=== PATIENT | male | born 1950 | race Caucasian/White ===

== ENCOUNTER 2022-09-09 09:33 | Outpatient (CLI) | payer BC, SELFPAY | END 2022-09-09 09:34 | disposition home or self-care (01) | PROVIDERS: PCP Family Medicine; Visit Provider Family Medicine | DX: Z00.00 Encounter for general adult medical examination without abnormal findings (principal); I10 Essential (primary) hypertension; E78.5 Hyperlipidemia, unspecified; Z12.5 Encounter for screening for malignant neoplasm of prostate | CPT/HCPCS: 80053; 80061; 82043; 82570; 84153 ==

== ENCOUNTER 2023-01-19 07:40 | Outpatient (CLI) | payer BC, SELFPAY | END 2023-01-19 07:41 | disposition home or self-care (01) | LOC: NFLDREF 01-20 10:19 | PROVIDERS: PCP Family Medicine; Referring Provider Family Medicine; Visit Provider Internal Medicine Nephrology | DX: I10 Essential (primary) hypertension (principal); R80.9 Proteinuria, unspecified; E78.5 Hyperlipidemia, unspecified | CPT/HCPCS: 80069; 82043; 82570 ==

== ENCOUNTER 2023-03-30 19:40 | Emergency (ER) | payer BC, SELFPAY ==
[2023-03-30] VITALS (9 sets, daily range): BP systolic 173–199; BP diastolic 79–111; PULSE 70–90; RESP 20; TEMP 36.4; O2SAT 92–96; BMI 32.8
--- OUTSIDE RECORDS SUMMARY | 2023-03-30 20:11 | XMS_ITS | Continuity of Care Document ---
Author Name Unknown Organization [facility] Address [address] [address] [place] [address] Phone Care Team Providers Care Buffing Turner And Counter Name Role Phone Flaquita Lucero CRNA Unavailable Unavailable Allergies, Adverse Reactions, Alerts Substance Reaction Status Criticality No Known Allergies Active No Inform ation Medications Medication Instructions Dosage Effective Dates (start - stop) Status Comments atorvastatin 40 mg tablet take 1 tablet by oral route every day 40 MG - Active omeprazole 20 mg capsule,delayed release take 1 capsule by oral route every day 30 minutes to 1 hour before a meal 20 MG - Active hydrochlorothiazide 12.5 mg tablet take 1 tablet (12.5MG) by oral route every day 12.5 MG - Active multivitamin tablet take 1 tablet by ORAL route every day with food 1 tablet - Active Aspir-81 81 mg tablet,delayed release take 1 Tablet (81MG) by oral route every day 81 MG - Active simvastatin 80 mg tablet take 1 tablet (80MG) by oral route every day in the evening - No Longer Active Procedures Procedure Date Colonoscopy Flex; W/remov Les- 20 Colonoscopy Flex; W/bx 1/mx Level Iv-surg Path Gross/micro 20 Offic/outpt E&m Estab Low-mod 9 Offic/outpt E&m New Mod Sever 8 Ugi Endo; Dx W/wo Collec Specm 14 Ugi Endo; W/balloon Dilat Esop 14 Ugi Endo; W/bx 1/mx Level Iv-surg Path Gross/micro 14 Offic/outpt E&m New Mod Sever 4 Advance Directives Directive Yes / No Effective Date File Name No Information Encounters Encounter Description Practice Location Reason(s) For Visit Diagnoses Date Provider Providers Copied on Encounter [facility], [address] [address], [place], [id number], [place] tel:[phone] [facility] No Information Sep-0 0 Jazmine Sams. [address] [facility] [address], [place], [id number] , [place]. tel: [phone] Referring Provider: North Melissa MD, [address] [facility] [address], [place], [address] . tel:[phone] [facility], [address] [address], [place], [id number], [place] tel:[phone] [facility] Colorectal polypsDiverticulosi sInternal hemorrhoidsEncounte r for screening for malignant neoplasm of colonBenign neoplasm of sigmoid colonBenign neoplasm of cecumDvrtclos of lg int w/o perforation or abscess w/o bleedingDvrtclos of lg int w/o perforation or abscess w/o bleedingBenign neoplasm of cecumBenign neoplasm of sigmoid colon Sep-0 0 Shin Kat. [address] [facility] [address], [place], [id number] , [place]. tel: [phone] Referring Provider: Referral Self. [facility], [address] [address], [place], [id number], [place] tel:[phone] [facility] No Information Sep-0 0 Shin Kat. [address] [facility] [address], [place], [id number] , [place]. tel: [phone] Offic/outpt E&m Estab Low-mod [facility], [address] [address], [place], [address], [place] tel:[phone] [facility] GI Symptoms or Concerns (chief complaint) Hiatal herniaGastroesophag eal reflux disease, esophagitis presence not specifiedPersonal history of colonic polypsDietary counseling and surveillance 9 Norris Harris. [address] [facility], [address], [place], [place], [id number] , [place]. [phone] Referring Provider: Lynda Rosado MD, [address] [facility] [address], [place] [place], [address] . tel:[phone] Offic/outpt E&m [facility], [address] [address], [place], [id number], [place] tel:[phone] [facility] GI Symptoms or Concerns (chief complaint) Functional dyspepsiaDietary counseling and surveillanceElevate d blood-pressure reading, w/o diagnosis of htn 8 Ashlee Howell. [address] [facility], [facility] [address], [facility] [place], [address] , [place]. [phone] Referring Provider: Referral Self. [facility], [address] [address], [place], [id number], [place] tel:[phone] [facility] Hiatal HerniaGastroduodena l Dis NosDuodenitisGastro duodenal Dis NosHiatal HerniaDuodenitis 4 Cayla Anderson. [address] [facility], [address], [facility] [place], [id number] , [place]. [phone] Referring Provider: Marixa Weir, [address], [place], [address]. tel:[phone] [facility], [address] [address], [place], [id number], [place] tel:[phone] [facility] Gastric/antral Ulcer UnspecDuodenitisHia santos HerniaEsoph Stricture/schatzki RingEsoph Stricture/schatzki RingHiatal HerniaDuodenitisGas tric/antral Ulcer Unspec 4 Cayla Anderson. [address] [facility], [address], [place], [place], [id number] , [place]. [phone] Referring Provider: Marixa Weir, [address], [place], [address]. tel:[phone] Offic/outpt E&m New Mod Sever [facility], [address] [address], [place], [place], [id number], [place] tel:[phone] [facility] Dysphagia, UnspecifiedEsoph Stricture/schatzki RingColon Cancer Screening 4 Janette Aden. [address] [facility], [facility] [address], [place], [place], [id number] , [place]. tel:[phone] Referring Provider: Referral Self. Family History Family Member Type Diagnosis Age At Onset No Information Immunizations Vaccine Date Status Comments Seasonal trivalent influenza vaccine, adjuvanted, preservative free administered Note: [facility] bi-direct ional interface ; Source: Other Registry zoster vaccine recombinant administered N ote: [facility] bi-directional interface ; Source: Other Registry zoster vaccine recombinant administered N ote: [facility] bi-directional interface ; Source: Other Registry influenza, high dose seasona l, preservative-free administered Note: [facility] bi-direct ional interface ; Source: Other Registry Influenza, injectable, MDCK, preservative free Flucelvax Quad Y administered Source: Other Provid er tetanus and diphtheria toxoi ds, adsorbed, preservative free, for adult use (5 Lf of tetanus toxoid and 2 Lf of diphtheria toxoid) administered Note: [facility] bi-direct ional interface ; Source: Other Registry influenza, high dose seasona l, preservative-free administered Note: [facility] bi-direct ional interface ; Source: Other Registry Prevnar 13 administered Note: [facility] bi-d irectional interface ; Source: Other Registry influenza, high dose seasona l, preservative-free administered Note: [facility] bi-direct ional interface ; Source: Other Registry Pneumococcal conjugate PCV 13 administere d Source: Certificate Fluzone Quad 6mo or older administered Note: [facility] bi-direct ional interface ; Source: Other Registry influenza, high dose seasona l, preservative-free administered Note: [facility] bi-direct ional interface ; Source: Other Registry Pneumovax 23 administered Note: [facility] bi-d irectional interface ; Source: Other Registry Pneumo (2 yrs or older)(PPV) administered Source: Other Provider Influenza, seasonal, injectable, preservative free administered Note: [facility] bi-directional interface ; Source: Other Registry Payers Payer name Insurance type Covered alliance party ID Deena cruz(s) [facility] [id number] Social History Type Description Quantity Date Captured Comments Sex Male Smoking Status No Information Chief Complaint And Reason For Visit No Information Reason For Referral Reason For Referral No Information Plan Of Treatment Date Type Action Status Goal Lifestyle education regardin g diet completed Goal Lifestyle education regardin g diet completed Referral Ordered: Colonoscopy Appointment date/timeframe: -today ordered History Of Present Illness Encounter Date Complaint History Of Prese nt Illness GI Symptoms or Concerns Harpal is seen today in followup. This patient is a 68-year-old man with a history of dysphagia. He had been found 5 years ago to have a Schatzki ring and large hiatal hernia. At that time, endoscopy had been performed, dilation was done, and he was placed on a PPI. Since then, he has actually been doing well.He denies symptoms of heartburn or dysphagia. He eats 5 to 6 o'clock at night and typically does not snack. He does not awaken with regurgitation. His weight is stable.I note that his family history shows no esophageal disease. The patient smokes an occasional cigar. His weight is stable.His history is reviewed. He has no allergies.MEDICATIONSAt this point, simvastatin, hydrochlorothiazide, vitamins, baby aspirin, and 20 of omeprazole daily.PRIOR SURGERIESInclude 2 hernias, appendectomy, broken leg, tonsils, and an umbilical hernia. Medically, he has been treated for blood pressure, hyperlipidemia, Schatzki's ring, and diverticulosis.SOCIAL HIS GI Symptoms or Concerns Very ple asant 67 year old man presents for follow up of functional dyspepsia. Patient reports long standing history of upper GI symptoms including heartburn, gas and bloating. He takes Omeprazole 40 mg daily which has led to complete resolution of patient's symptoms. He had an EGD in 07/2013 that was essentially normal. Patient underwent empiric balloon dilation at the time, size: 13 mm, 14 mm, 15 mm, since he was complaining on dysphagia. Followup EGD 09/2013 showed non-obstructing Schatzki's ring at GE junction with medium sized HH. Mid and distal esophageal biopsies were negative. Stomach biopsies showed reactive gastropathy with no evidence of H. Pylori infection. Patient feels fine at baseline. He reports that his symptoms are well controlled with omeprazole. He denies heartburn, dysphagia, nausea, vomiting, abdominal pain, or changes in bowel habits. No blood in the stool. Weight is stable. He's UTD in terms of colon cancer screening. Functional Status Date Functional Assessmen t No Information Instructions Date Instruction Additional Infor mation Diverticulosis/Diverticulitis Re lated to Colorectal polyps Colon Polyps Related to Color ectal polyps Hemorrhoids Related to Color ectal polyps Colon Cancer Prevention Related to Colorectal polyps high fiber diet Related to Color ectal polyps Clinically, the francesca ent is doing well. I have refilled his omeprazole. We talked about the potential benefits and risks of these medications. We also talked about long-term treatments of reflux including medical treatment and surgery.He has a history of polyps in the past. It has been 5 years. I have ordered a colonoscopy at this point and the patient will comply at some point in the future. His is undergoing hip surgery tomorrow.If the patient is otherwise doing well, I will ask that he follow up through his primary provider, Marixa Deleon, or we would be happy to see him as needed. Related to Hiatal hernia Lifestyle education regarding di et Related to Dietary counseling and surveillance Lifestyle education regarding di et Related to Dietary counseling and surveillance Assessments Type Assessment Date No Information Patient Care Teams Name Effective Dates (start - stop) Status Members No Information
[2023-03-30 20:32] LABS: Lactate* 1.3 mmol/L (0.5-1.9)
[2023-03-30 20:34] LABS: Basophils Absolute Auto 0.06 K/uL (0.00-0.30); Basophils Percent Auto 0.8 % (0.0-3.0); Eosinophils Absolute Auto 0.18 K/uL (0.00-0.50); Eosinophils Percent Auto 2.3 % (0.0-7.0); Hematocrit 41.8 % (37.0-53.0); Hemoglobin* 14.1 gm/dL (13.5-17.5); Immature Granulocytes Abs Auto 0.03 K/uL (0.00-0.30); Immature Granulocytes Pct Auto 0.4 %; Lymphocytes Percent Auto 16.2 % (20-44); Mean Corpuscular HGB Conc 34 gm/dL (32-36); Mean Corpuscular Hemoglobin 30 pg (26-34); Mean Corpuscular Volume 90 fL (80-100); Monocytes Percent Auto 7.9 % (0.0-11.0); Neutrophils Percent Auto 72.4 % (42.0-72.0); Platelet Count* 192 K/uL (140-440); Red Blood Count 4.66 m/uL (4.30-5.90); White Blood Count* 7.83 K/uL (4.50-11.00)
--- NOTE | 2023-03-30 20:34 | ED_ITS ---
HPI - General Adult General Chief complaint: Hypertension Stated complaint: High blood pressure - 191 sys. Time Seen by Provider: 03/30/23 19:46 Source: patient Mode of arrival: ambulatory Limitations: no limitations History of Present Illness HPI narrative: 72-year-old male with a history of poorly controlled hypertension presents today with elevated blood pressures and headache. Patient states that for about a week and his blood pressures have been quite elevated in the 190s and 200s systolic. He states that he was on hydrochlorothiazide-losartan combination in about a week ago he was switched to losartan only few days after that his dose was increased to 100 mg. He tells me that he was told he had some abnormal labs and that is why he was taken off the hydrochlorothiazide. He is uncertain exactly the details of that decision. He does state that yesterday he started with a headache and the headache has progressed. He states that he woke up at 3:00 a.m. in the morning with a lot of pressure in his head and that pressure continues throughout the day. He also states that he feels tired and this is unlike him. Patient tells me that he tries to exercise regularly. He does not put any salt on his food at home, but he does eat out very frequently. Related Data Home Medications Medication Instructions Recorded Confirmed B6 1.7 mg-folic 400 mcg-B12 2.4 1 cap PO .QD 03/12/22 03/30/23 [id number] oral capsule (Neuriva Plus Brain Performance) multivitamin with iron (Daily 1 tab PO QDAY 03/12/22 03/25/23 Multiple Vitamins with Iron tablet) Previous Rx's Medication Instructions Recorded atorvastatin 40 mg tablet 40 mg PO QDAY #90 tabs 09/09/22 omeprazole 20 mg capsule,delayed 20 mg PO DAILY #90 caps 09/09/22 release losartan 100 mg tablet 100 mg PO QDAY #30 tabs 03/25/23 nirmatrelvir 300 mg (150 mg See Rx Instructions PO .COMPLEX 03/30/23 x2)-ritonavir 100 mg tablet,dose #30 ea pack (Paxlovid) Allergies Allergy/AdvReac Type Severity Reaction Status Date / Time No Known Allergies Allergy Verified 03/25/23 07:58 Review of Systems Status of ROS: Reports: 10 or more systems reviewed and unremarkable except as noted in History and below [facility] Medical History Bronchitis ?J40 - Bronchitis, not specified as acute or chronic (ICD-10) Gastric ulcer (03/20/13) ?K25.9 - Gastric ulcer, unspecified as acute or chronic, without hemorrhage or perforation (ICD-10) Diverticulosis of intestine ?K57.90 - Diverticulosis of intestine, part unspecified, without perforation or abscess without bleeding (ICD-10) Difficulty breathing ?R06.89 - Other abnormalities of breathing (ICD-10) Neutropenia ?D70.9 - Neutropenia, unspecified (ICD-10) History of herpes zoster ?Z86.19 - Personal history of other infectious and parasitic diseases (ICD- 10) History of fracture of lower extremity ?Z87.81 - Personal history of (healed) traumatic fracture (ICD-10) Surgical History Status post repair of ventral hernia ?Z98.890 - Other specified postprocedural states (ICD-10) ?Z87.19 - Personal history of other diseases of the digestive system (ICD-10) History of umbilical hernia repair ?Z98.890 - Other specified postprocedural states (ICD-10) ?Z87.19 - Personal history of other diseases of the digestive system (ICD-10) History of tonsillectomy ?Z90.89 - Acquired absence of other organs (ICD-10) History of esophagogastroduodenoscopy (EGD) (03/20/13) ?Z98.890 - Other specified postprocedural states (ICD-10) History of appendectomy (03/20/13) ?Z90.49 - Acquired absence of other specified parts of digestive tract (ICD- 10) Family History Mother Breast cancer Father Stroke Social History Narrative: Cigar smoker- 3-4/week Does not use illicit drugs Occasional alcohol consumption Exercises regularly- walking Has 2 children Smoking Status: Current every day smoker What tobacco products do you use: cigars How often do you have a drink containing alcohol: 2-3 times a week How often do you have six or more drinks on one occasion: Never AUDIT-C Alcohol total score: 3 Non-prescribed substance use: denies use Little interest or pleasure in doing things: not at all Feeling down, depressed, or hopeless: not at all Exam Narrative: Exam Narrative: Obese, well-developed patient in no acute distress. Alert and oriented x3. Answers questions appropriately. Mood and affect are appropriate. Thoughts are goal oriented and rational. No tangential or magical thinking noted. Patient speaks in full sentences without needing to catch his breath. Speech is not slurred or pressured. HEENT: Normocephalic atraumatic. Pupils are equally round reactive to light. Extraocular muscles are intact. Conjunctivae are moist without any icterus noted. Moist mucous membranes. P Cardiovascular: Heart is regular rate and rhythm S1 and S2 are present without any murmurs. Lungs: Clear to auscultation bilaterally no wheezes rhonchi or rales are appreciated. Patient takes deep breaths without any discomfort. Abdomen: Soft and nontender nondistended with normal bowel sounds. Protuberant. Extremities: Bilateral lower extremities are without edema. Normal DP and PT pulses. Skin: Well perfused without any obvious rashes. Strength is 5/5 of the upper and lower extremities. Reflexes are 2+ and symmetric at the knees. Cranial nerves 3-12 are grossly normal. There is no nystagmus either horizontally or vertically. Gait is normal. Const: Vital Signs, click to edit/add: Vital Signs - 24 hr 03/30/23 19:49 03/30/23 21:24 03/30/23 21:30 Temperature 97.6 F Pulse Rate 73 75 Pulse Rate [Pulse Oximeter] 90 Respiratory Rate 20 Blood Pressure Blood Pressure [Ri ght Upper Arm] 199/79 H Pulse Oximetry 95 92 94 Oxygen Delivery Me thod Room Air 03/30/23 21:32 Temperature Pulse Rate 72 Pulse Rate [Pulse Oximeter] Respiratory Rate Blood Pressure 173/99 H Blood Pressure [Ri ght Upper Arm] Pulse Oximetry 95 Oxygen Delivery Ks thod Course Course ED Course: Given his symptoms of fatigue and headache we did offer further workup today. EKG, read by me, shows normal sinus rhythm with a pulse of 72. CBC and chemistries were unremarkable. COVID-19 was positive. Given patient's significant concerns about his elevated blood pressure we did go ahead and give him 5 mg of IV labetalol which brought his systolic down to 164. Vital Signs Vital signs: Initial Vital Signs Temperature 97.6 F 03/30/23 19:49 Temperature Source Temporal Artery Scan 03/30/23 19:49 Pulse Rate 90 03/30/23 19:49 Respiratory Rate 20 03/30/23 19:49 Blood Pressure 199/79 H 03/30/23 19:49 Blood Pressure Mean 119 H 03/30/23 19:49 Pulse Oximetry 95 03/30/23 19:49 Oxygen Delivery Method Room Air 03/30/23 19:49 Vital Signs Temperature 97.6 F 03/30/23 19:49 Pulse Rate 90 03/30/23 19:49 Respiratory Rate 20 03/30/23 19:49 Blood Pressure 199/79 H 03/30/23 19:49 Pulse Oximetry 95 03/30/23 19:49 Oxygen Delivery Method Room Air 03/30/23 19:49 Temperature 97.6 F 03/30/23 19:49 Pulse Rate 72 03/30/23 21:32 Respiratory Rate 20 03/30/23 19:49 Blood Pressure 173/99 H 03/30/23 21:32 Pulse Oximetry 95 03/30/23 21:32 Oxygen Delivery Method Room Air 03/30/23 19:49 Medical Decision Making MDM Narrative Medical decision making narrative: 72-year-old male with hypertension poorly controlled. Patient has an appointment scheduled with primary care provider in 2 weeks and he is encouraged to keep that appointment. COVID-19. Will treat with Paxlovid given his age. Lab Data Lab results reviewed: Yes I reviewed the patient's lab results Labs: Lab Results 03/30/23 03/30/23 Range/Units 20:16 20:25 WBC 7.83 (4.50-11.00) K/uL RBC 4.66 (4.30-5.90) m/uL Hgb 14.1 (13.5-17.5) gm/dL Hct 41.8 (37.0-53.0) % MCV 90 (80-100) fL MCH 30 (26-34) pg MCHC 34 (32-36) gm/dL RDW Coeff of Xochitl 12.0 (11.5-15.5) % Plt Count 192 (140-440) K/uL Neut % (Auto) 72.4 H (42.0-72.0) % Lymph % (Auto) 16.2 L (20-44) % Lewis % (Auto) 7.9 (0.0-11.0) % Eos % (Auto) 2.3 (0.0-7.0) % Baso % (Auto) 0.8 (0.0-3.0) % Neut # (Auto) 5.70 (1.7-7.0) K/uL Lymph # (Auto) 1.30 (0.90-2.90) K/uL Lewis # (Auto) 0.60 (0.00-0.90) K/UL Eos # (Auto) 0.18 (0.00-0.50) K/uL Baso # (Auto) 0.06 (0.00-0.30) K/uL Abs Immat Gran (auto) 0.03 (0.00-0.30) K/uL Imm/Tot Granulo (auto) 0.4 % Sodium 138 (135-149) mmol/L Potassium 3.7 (3.6-5.1) mmol/L Chloride 103 (96-114) mmol/L Carbon Dioxide 28 (20-32) mmol/L Anion Gap 7 (7-15) mEq/L BUN 19 (7-30) mg/dL Creatinine 0.9 (0.5-1.5) mg/dL Estimated Creat Clear 64.81 Estimated GFR 90 ml/min Glucose 136 H (60-115) mg/dL Lactate 1.3 (0.5-1.9) mmol/L Calcium 9.3 (8.4-10.6) mg/dL C-Reactive Protein < 0.5 L (0.5-1.0) mg/dL SARS-CoV-2 (PCR) POSITIVE SARS-CoV-2 A (Negative) ECG Data Attestation: I personally reviewed and interpreted this ECG as follows: Discharge Plan Discharge Clinical Impression: COVID-19, Poorly-controlled hypertension Patient Disposition: Home, Self-Care Condition: Stable Additional Instructions: transportation department supervisor medication tomorrow and start then. Quarantine yourself for 10 days or until symptoms have resolved. You should wear a mask around other people for a total of 10 days. Stop taking your atorvastatin while taking Paxlovid. You can restart 2 days after Paxlovid is done. Prescriptions: New Paxlovid 300 mg (150 mg x 2)-100 mg tablets,dose pack See Rx Instructions .ROUTE .COMPLEX Qty: 30 0RF Rx Instructions: take TWO 150 mg tablets of nirmatrelvir with ONE 100 mg tablet of ritonavir twice daily for 5 days No Action multivitamin with iron [Daily Multiple Vitamins/Iron] Tablet 1 tab PO QDAY Neuriva Plus Brain Performance 1.7 mg-400 mcg- 2.4 mcg capsule 1 cap PO .QD atorvastatin 40 mg tablet 40 mg PO QDAY Qty: 90 3RF omeprazole 20 mg capsule,delayed release(DR/EC) 20 mg PO DAILY Qty: 90 3RF losartan 100 mg tablet 100 mg PO QDAY Qty: 30 1RF Follow Up/Referrals: Ame Montesinos DO [Primary Care Provider] - Stand Alone Forms: MyHealth Info Instructions
[2023-03-30 20:38] LABS: Slide Review Reflex No
[2023-03-30 20:51] LABS: Chloride* 103 mmol/L (96-114); Potassium* 3.7 mmol/L (3.6-5.1); Sodium* 138 mmol/L (135-149)
[2023-03-30 20:54] LABS: Creatinine* 0.9 mg/dL (0.5-1.5); Est. Creatinine Clearance* 64.81; Estimated Glomerular Filt Rate 90 ml/min
[2023-03-30 20:55] LABS: Blood Urea Nitrogen* 19 mg/dL (7-30); Calcium* 9.3 mg/dL (8.4-10.6); Carbon Dioxide* 28 mmol/L (20-32); Glucose* 136 mg/dL (60-115)
[2023-03-30 20:58] LABS: Anion Gap 7 mEq/L (7-15); C Reactive Protein* < 0.5 mg/dL (0.5-1.0)
[2023-03-30] MEDS: LABETALOL HCL 5 MG/ML inj IVP (21:07)
[2023-03-30 21:13] LABS: SARS PCR* POSITIVE SARS-CoV-2 (Negative)
[2023-03-30 22:00] LABS: Albumin* 4.1 g/dL (3.3-5.0)
[2023-03-30 22:03] LABS: Alanine Aminotransferase* 25 U/L (4-50); Alkaline Phosphatase* 89 U/L (40-150); Aspartate Amino Transferase* 29 U/L (12-35); Bilirubin Total* 0.6 mg/dL (0.1-1.5); Total Protein* 7.4 g/dL (6.0-8.3)
[2023-03-30 22:20] LABS: NT Pro B Type NatriureticPept* 163 pg/mL; Troponin I* < 0.01 ng/mL (0.01-0.04)
== END 2023-03-30 22:15 | disposition home or self-care (01) ==
PROVIDERS: Emergency Provider Family Medicine; PCP Family Medicine
DX: U07.1 COVID-19 (principal); I10 Essential (primary) hypertension
CPT/HCPCS: 36415; 80048; 80076; 81001; 83605; 83880; 84443; 84484; 85025; 86140; 87086; 87635; 93005; 96374; 99284

== ENCOUNTER 2023-04-12 08:35 | Outpatient (CLI) | payer BC, SELFPAY | END 2023-04-12 08:36 | disposition home or self-care (01) | LOC: NFLDREF 04-14 10:51 | PROVIDERS: PCP Family Medicine; Referring Provider Family Medicine; Visit Provider Internal Medicine Nephrology | DX: I10 Essential (primary) hypertension (principal); R80.9 Proteinuria, unspecified; E78.5 Hyperlipidemia, unspecified | CPT/HCPCS: 80069; 82043; 82570 ==

== ENCOUNTER 2023-04-29 07:55 | Outpatient (CLI) | payer BC, SELFPAY | END 2023-04-29 07:56 | disposition home or self-care (01) | LOC: NFLDREF 05-02 01:19 | PROVIDERS: PCP Family Medicine; Referring Provider Family Medicine; Visit Provider Internal Medicine Nephrology | DX: I10 Essential (primary) hypertension (principal); R80.9 Proteinuria, unspecified | CPT/HCPCS: 80048; 80069; 82043; 82570 ==

== ENCOUNTER 2023-06-21 07:36 | Outpatient (CLI) | payer BC, SELFPAY | END 2023-06-21 07:37 | disposition home or self-care (01) | LOC: NFLDREF 06-22 10:55 | PROVIDERS: PCP Family Medicine; Referring Provider Family Medicine; Visit Provider Internal Medicine Nephrology | DX: I10 Essential (primary) hypertension (principal); E78.5 Hyperlipidemia, unspecified; R80.9 Proteinuria, unspecified; D70.9 Neutropenia, unspecified | CPT/HCPCS: 80069; 82043; 82570 ==

== ENCOUNTER 2023-12-27 08:18 | Outpatient (CLI) | payer BC, SELFPAY ==
--- OUTSIDE RECORDS SUMMARY | 2023-12-29 06:08 | XMS_ITS | Referral Summary ---
Author Organization [facility] Address [address] [place] [address] Care Team Providers Care Housing Liaison Name Role Phone Unavailable Primary Care Provider Unavailabl e Source Comments Patient records contain information from all sites at [facility]. For routine questions regarding patient records, call [phone] during business hours, M-F 8:00 AM - 5:00 PM Central Time. Record requests for emergency care only can be directed to [phone] at any time.[facility] Encounters Date Type Department Care Team Description 12/28/2023 8:00 AM CDT External Outreach Division of Nephrology and Hypertension in [place], [place] [address] [place] [address] Nubia Bowers M.D., Ph.D. Proteinuria (Primary Dx); Hypertension Essential Primary from Last 3 Months Medications Medication Sig Dispensed Refills Start Date End Date Status losartan-hydroCHLORO thiazide (HYZAAR) 100-12.5 mg per tablet Take 1 tablet by mouth daily. 90 tablet 3 04/14/2023 04/13/2024 Active amLODIPine (Norvasc) 5 mg tablet Take 1 tablet (5 mg total) by mouth daily. 90 tablet 3 12/28/2023 12/27/2024 Active Social History Tobacco Use Types Packs/Day Years Used Date Smoking Tobacco: Never Assessed Nutrition Answer Date Recorded Nutrition: EVOO Fat Source Unknown 09/18 Nutrition: Servings of Fruits/Vegetables per Day Not on file 09/18/2022 Dental Answer Date Recorded Dental: Regular Dentist Unknown 09/19/19 Sex and Gender Information Value Date Recorded Sex Assigned at Not on file Gender Identity Not on file Sexual Orientation Not on file Plan of Treatment Not on file
--- OUTSIDE RECORDS SUMMARY | 2023-12-29 06:08 | XMS_ITS ---
Author Organization [facility] Address [address] [place] [address] Care Team Providers Care Outside Physical Damage Appraiser Name Role Phone Unavailable Unavailable Unavailable Surgery Details Not on file Complications Check Surgery Details section. Procedure Estimated Blood Loss Check Surgery Details section. Procedure Findings Check Surgery Details section. Procedure Specimens Taken Check Surgery Details section.
--- OUTSIDE RECORDS SUMMARY | 2023-12-29 06:08 | XMS_ITS | Clinical Summary ---
Author Organization [facility] Address [address] [place] [address] Care Team Providers Care Framework Developer Name Role Phone Unavailable Primary Care Provider Unavailabl e Source Comments Patient records contain information from all sites at [facility]. For routine questions regarding patient records, call [phone] during business hours, M-F 8:00 AM - 5:00 PM Central Time. Record requests for emergency care only can be directed to [phone] at any time.[facility] Medications Medication Sig Dispensed Refills Start Date End Date Status losartan-hydroCHLORO thiazide (HYZAAR) 100-12.5 mg per tablet Take 1 tablet by mouth daily. 90 tablet 3 04/14/2023 04/13/2024 Active amLODIPine (Norvasc) 5 mg tablet Take 1 tablet (5 mg total) by mouth daily. 90 tablet 3 12/28/2023 12/27/2024 Active Encounters Date Type Department Care Team Description 12/28/2023 8:00 AM CDT External Outreach Division of Nephrology and Hypertension in [place], [place] [address] [place] [address] Nubia Bowers M.D., Ph.D. Proteinuria (Primary Dx); Hypertension Essential Primary from Last 3 Months Social History Tobacco Use Types Packs/Day Years [...] Orientation Not on file Plan of Treatment Health Maintenance Due Date Last Done Comments CT Colonography 1948 Cologuard 1950 Colonoscopy 1950 Colorectal Cancer Screening 1948 Creatinine Level (Kidney Fun ction Test) 1948 FIT 1948 Fasting Glucose for Diabetes Screening 1948 Hepatitis C Screening 1950 Potassium Level 1948 Sodium Level 1948 DTaP,Tdap,and Td Vaccines (1 - Tdap) 05/05/2017 05/04/2017 COVID-19 Vaccine (5 - 2023-2 4 season) 2023 01/08/2022, 05/16/2021, 09/27/2020, Additional history exists Depression Screening (Annual PHQ-2) 07/05/2023 Fall Risk Screen (Annual) 07/05/2023 Pneumococcal vaccine (65+ years) Completed 04/16/20, 12/07/2013 Zoster Vaccines Completed 09/15/2018, 07/11/2018 Influenza Vaccine Completed 04/19/2023, , 04/02/2020, Additional history exists
--- OUTSIDE RECORDS SUMMARY | 2023-12-29 06:08 | XMS_ITS | Encounter Summary ---
Author Organization [facility] Address [address] [place] [id number] Care Team Providers Care Head Esthetician Name Role Phone Unavailable Primary Care Provider Unavailabl e Reason for Visit * Appointment Request (Routine) - Closed Specialty Diagnoses / Procedures Referred By Contac t Referred To Contact Nephrology and Hypertension Referral ID Status Reason Start Date Expiration Date Visits Re quested Visits Authorized [id number] Closed 11/11/2023 11/10/2024 1 1 Encounter Details Date Type Department Care Team (Latest Contact Info) Description 12/28/2023 8:00 AM CDT External Outreach Division of Nephrology and Hypertension in [place], [place] [address] [place] [address] Nubia Bowers M.D., Ph.D. [address] [place] [address] Proteinuria (Primary Dx); Hypertension Essential Primary Social History Tobacco Use Types Packs/Day Years [...] on file Sexual Orientation Not on file documented as of this encounter Progress Notes * Nubia Bowers M.D., Ph.D. - 12/28/2023 8:00 AM CDT SUBJECTIVE CHIEF COMPLAINT / REASON FOR VISIT Follow up hypertension management and subnephrotic range proteinuria [facility] [place] outreach visit Location: [facility] HISTORY OF PRESENT ILLNESS Harpal Diamond is a 73 y.o. male with hypertension diagnosed about 3 years ago on losartan 100mg daily and HCTZ 12.5 mg. His BP at home ranges in the 150s/90s. His BP in clinic today is 147/82.He is aware that he have gained weight over the past year, his BMI is now 34 (up from 33 6 months ago) He is planning to start a dieting program. No NSAIDs use, only tylenol PM. He follows a low salt diet. No history of diabetes. No history of kidney stones. Patient has not noticed any lightheadedness, dizziness, vision changes, diaphoresis, chest pain, difficulty breathing, or edema. Patient has not noticed any changes in urinary habits. No hesitancy tourinate, no difficulty to urinate. REVIEW OF SYSTEMS All other systems were reviewed and are negative, rest as per HPI. OBJECTIVE BP 147/92 Pulse 75. Wt 104.3 BMI 34 PHYSICAL EXAMINATION General: No acute distress, breathing comfortably. Psych: Answers questions appropriately. No signs of anxiety or depression noted. DIAGNOSTICS Labs: I have reviewed available labs in detail with patient. 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 Kidney function remains stable. Estimated GFR is above 60. His urinalysis with microscopy is normal, no hematuria. No anemia, no metabolic acid-base disorder. No mineral bone disease. Mild proteinuria with ACR of 200. It could be associated with presence of hypertension. Plan to addamlodipine 5 mg daily. His primary care provider may increase it to 10 mg daily if needed. Patient is meeting with them in January 2024. BP goal is systolic readings between 100-130 mmHg and diastolic readings between 60-80 mmHg. I haverecommended patient to check BP regularly at home, to keep a record of blood pressure readings to bring with him to our next visit. If BP is not at goal, medications should be adjusted. I have discussed extensively with patient about risk of developing CKD if BP and proteinuria are not controlled. I recommended patient to follow a low salt diet and to exercise regularly. We discussed about salt intake and our recommendation to limit sodium intake to less than 2000 mg per day. Losing weight will be ideal to improve blood pressure and cardiovascular outcomes. Patient verbalizes und erstanding. Return to clinic in 1 year to monitor proteinuria. Dyana Hester M.D., Ph.D. Nephrology and Hypertension documented in this encounter Plan of Treatment Not on file documented as of this encounter Visit Diagnoses Diagnosis Proteinuria- Primary Hypertension Essential Primary documented in this encounter
--- OUTSIDE RECORDS SUMMARY | 2023-12-29 06:08 | XMS_ITS | Continuity of Care Document ---
Author Organization [facility] Address [address] [address] [place] [address] Phone Care Team Providers Care Marketing Clerk Name Role Phone Flaquita Lucero CRNA Unavailable [...] Diagnoses Date Provider Providers Copied on Encounter [facility], [address] [address], [place], [id number], [place] tel:[phone] [facility] No Information Sep-0 0 Jazmine Sams. [address] [facility] [address], [place], [id number] , [place]. tel: [phone] Referring Provider: [place] Melissa MD, [address] [facility], [place], [address] . tel:[phone] [facility], [address] [address], [place], [id number], [place] tel:[phone] [facility] Colorectal polypsDiverticulosi sInternal hemorrhoidsEncounte r for screening for malignant neoplasm of colonBenign neoplasm of sigmoid colonBenign neoplasm of cecumDvrtclos of lg int w/o perforation or abscess w/o bleedingDvrtclos of lg int w/o perforation or abscess w/o bleedingBenign neoplasm of cecumBenign neoplasm of sigmoid colon Sep-0 0 Shin Kat. [address] [facility] [facility] [address], [place], [id number] , [place]. tel: [phone] Referring Provider: Referral Self, USE FOR SELF REFERRALS. [facility], [address] [address], [place], [id number], [place] tel:[phone] [facility] No Information Sep-0 0 Shin Kat. [address], [place], [place], [id number] , [place]. tel: [phone] Offic/outpt E&m Estab Low-mod [facility], [address] [address], [place], [id number], [place] tel:[phone] [facility] GI Symptoms or Concerns (chief complaint) Hiatal herniaGastroesophag eal reflux disease, esophagitis presence not specifiedPersonal history of colonic polypsDietary counseling and surveillance 9 Norris Harris. [address] [facility], [place], [place], [id number] , [place]. [phone] Referring Provider: Lynda Rosado MD, [address] [facility] [address], [place], [address] . tel:[phone] Offic/outpt E&m [facility], [address] [address], [place], [id number], [place] tel:[phone] [facility] GI Symptoms or Concerns (chief complaint) Functional dyspepsiaDietary counseling and surveillanceElevate d blood-pressure reading, w/o diagnosis of htn 8 Ashlee Howell. [address] [facility], [address], [place], [place], [id number] , [place]. [phone] Referring Provider: Referral Self, USE FOR SELF REFERRALS. [facility], [address] [address], [place], [id number], [place] tel:[phone] [facility] Hiatal HerniaGastroduodena l Dis NosDuodenitisGastro duodenal Dis NosHiatal HerniaDuodenitis 4 Cayla Anderson. [address] [facility], [address], [place], [place], [id number] , [place]. [phone] Referring Provider: Marixa Weir, [address], [place], [address]. tel:[phone] [facility], [address] [address], [place], [id number], [place] tel:[phone] [facility] Gastric/antral Ulcer UnspecDuodenitisHia santos HerniaEsoph Stricture/schatzki RingEsoph Stricture/schatzki RingHiatal HerniaDuodenitisGas tric/antral Ulcer Unspec 4 Cayla Anderson. [address] [facility], [address], [place], [place], [id number] , [place]. tel:[phone] Referring Provider: Marixa Weir, [address], [place], [address]. tel:[phone] Offic/outpt E&m [facility], [address] [address], [place], [place], [id number], [place] tel:[phone] [facility] Dysphagia, UnspecifiedEsoph Stricture/schatzki RingColon Cancer Screening 4 Janette Aden. [address] [facility], [facility] [address], [place], [place], [id number] , [place]. tel:[phone] Referring Provider: Referral Self, USE FOR SELF REFERRALS. Family History Family Member Type Diagnosis Age [...] Source: Certificate Fluzone Quad 6mo or older [id number] administered Note: [facility] bi-direct ional interface ; [...] Registry Payers Payer name Insurance type Covered libertarian ID Authoriza anthony(s) [facility] [id number] Social History Type Description Quantity Date Captured [...] he follow up through his primary provider, Mairxa Deleon, or we would be happy to see him as needed. Related to Hiatal hernia Lifestyle education regarding di et Related to Dietary counseling and surveillance Lifestyle education regarding di et Related to Dietary counseling and surveillance Assessments Type Assessment Date No Information Patient Care Teams Name Effective Dates (start - stop) Status Members No Information
== END 2023-12-27 08:19 | disposition home or self-care (01) ==
LOC: NFLDREF 12-29 06:07
PROVIDERS: PCP Physician Assistant Medical; Referring Provider Family Medicine; Visit Provider Internal Medicine Nephrology
DX: R80.9 Proteinuria, unspecified (principal); I10 Essential (primary) hypertension; E78.5 Hyperlipidemia, unspecified; Z12.5 Encounter for screening for malignant neoplasm of prostate
CPT/HCPCS: 80061; 80069; 82043; 82570; 84156; 84443; 84450; 84460; 87086; G0103

== ENCOUNTER 2025-01-15 07:46 | Outpatient (CLI) | payer BC, SELFPAY | END 2025-01-15 07:47 | disposition home or self-care (01) | PROVIDERS: PCP Physician Assistant Medical; Referring Provider Physician Assistant Medical; Visit Provider Internal Medicine Nephrology | DX: R80.9 Proteinuria, unspecified (principal); I10 Essential (primary) hypertension; E78.2 Mixed hyperlipidemia | CPT/HCPCS: 80069; 82043; 82570; 84156; 87086 ==

== ENCOUNTER 2025-01-17 12:59 | Outpatient (CLI) | payer BC, SELFPAY | END 2025-01-17 13:00 | disposition home or self-care (01) | LOC: NFLDREF 01-19 03:15 | PROVIDERS: PCP Physician Assistant Medical; Referring Provider Physician Assistant Medical; Visit Provider Internal Medicine Nephrology | DX: R80.9 Proteinuria, unspecified (principal); I10 Essential (primary) hypertension; E78.2 Mixed hyperlipidemia | CPT/HCPCS: 82570; 84156 ==

== ENCOUNTER 2025-01-23 11:34 | Outpatient (CLI) | payer BC, SELFPAY | END 2025-01-23 11:35 | disposition home or self-care (01) | LOC: NFLDREF 11:34 | PROVIDERS: PCP Physician Assistant Medical; Visit Provider Internal Medicine Nephrology | DX: R80.9 Proteinuria, unspecified (principal); I10 Essential (primary) hypertension; E78.5 Hyperlipidemia, unspecified | CPT/HCPCS: 82043; 82570 ==

== ENCOUNTER 2025-04-06 08:00 | Outpatient (CLI) | payer BC, SELFPAY | END 2025-04-06 08:01 | disposition home or self-care (01) | LOC: NFLDREF 04-09 11:50 | PROVIDERS: PCP Physician Assistant Medical; Referring Provider Physician Assistant Medical; Visit Provider Physician Assistant Medical | DX: E78.2 Mixed hyperlipidemia (principal) | CPT/HCPCS: 80061; 84443; 84450; 84460; G0103 ==

== ENCOUNTER 2025-04-18 12:47 | Outpatient (CLI) | payer BC, SELFPAY ==
--- NOTE | 2025-04-18 13:00 | CRLHL7_ITS ---
For Patients: As a result of the Century Cures Act, medical imaging exams and procedure reports are released immediately into your electronic medical record. You may view this report before your referring provider. If you have questions, please contact your health care provider. INDICATION: Lung cancer screening. Smoking history. TECHNIQUE: CT chest low dose without contrast. COMPARISON: Chest radiographs 10/15/2021. FINDINGS: Pulmonary nodules: 5 mm right upper lobe solid nodule (series 3, image 50). 5 mm subpleural nodule along the posterior inferior border of the right major fissure (image 61). 5 mm left lower lobe solid nodule (image 64). Lungs, airways, and pleural spaces: Multifocal bilateral subpleural reticulation without honeycombing. Findings are most compatible with interstitial lung disease. Scattered bronchiectasis and architectural distortion most prominently in the left lower and right middle lobes. No focal consolidation. No pleural effusion or pneumothorax. Moderate paraseptal emphysema. Heart and vasculature: Heart size is normal. Thoracic aorta and pulmonary artery are normal in caliber. Moderate coronary atherosclerosis. Lymph nodes and mediastinum: No mediastinal, hilar, or axillary adenopathy. Visualized portions of the thyroid are within normal limits. Chest wall: Unremarkable. Upper abdomen: Moderate hiatal hernia. Otherwise normal noncontrast appearance of the upper abdomen. Bones: No acute osseous abnormalities. Mild degenerative changes of the thoracic spine. IMPRESSION: 1. Bilateral 5 mm pulmonary nodules. 2. Findings of interstitial lung disease with multifocal bilateral subpleural reticulation, architectural distortion, and bronchiectasis. No honeycombing 3. Moderate hiatal hernia. LUNG-RADS Category 2: BENIGN BEHAVIOR OR APPEARANCE. Continue annual screening, if eligible, with LDCT in 12 months. Probability of malignancy is <1%. Please note that all CT scans at this facility use dose modulation, iterative reconstruction, and/or weight-based dosing when appropriate to reduce radiation dose to as low as reasonably achievable. Dictated by Nahun Wells MD @ 04/19/2025 4:01:40 PM (Electronically Signed)
== END 2025-04-18 12:48 | disposition home or self-care (01) ==
LOC: CT 12:48
PROVIDERS: PCP Physician Assistant Medical; Visit Provider Physician Assistant Medical
DX: Z12.2 Encounter for screening for malignant neoplasm of respiratory organs (principal); R91.8 Other nonspecific abnormal finding of lung field; F17.200 Nicotine dependence, unspecified, uncomplicated; K44.9 Diaphragmatic hernia without obstruction or gangrene
CPT/HCPCS: 71271